=== PATIENT | female | born 1935 | race Caucasian/White ===

== ENCOUNTER → 2018-12-04 | Outpatient (CLI) | payer MEDICARE, OTHER ==
[~2018-12-04] MED LIST: ASPI-1182 PO; BENA10TA12 PO; CARV3.1262 PO; CHOL2000 PO; GLUC-29 PO; LEVO88TA4 PO; MULT-75 PO; OMEP10 PO; SERT50TA12 PO; THEO100T25 PO
== END | disposition home or self-care (01) ==
LOC: RADMN 09:51
PROVIDERS: ATTEND Internal Medicine Critical Care Medicine
DX: R13.10 Dysphagia, unspecified (principal)
CPT/HCPCS: 74230; 92611